=== PATIENT | male | born 2000 | race African-American/Black ===

== ENCOUNTER 2022-12-01 13:36 | Emergency (ER) | payer SELFPAY ==
[~2022-12-01] VITALS: Ht 193 cm; Wt 150.0 kg
[2022-12-01 13:46] VITALS: BP 149/55
[2022-12-01 15:57] LABS: BASOPHILS % 0.4 % (0.0-2.0); EOSINOPHILS % 1.3 % (0.0-5.0); HEMATOCRIT. 45.1 % (42.0-52.0); HEMOGLOBIN. 15.2 g/dL (14.0-18.0); LYMPHOCYTES % 29.1 % (20.0-50.0); MEAN CORPUSCULAR VOLUME 83.3 fL (80.0-94.0); MEAN PLATELET VOLUME 6.7 fl (7.4-10.4); MONOCYTES % 6.8 % (2.0-8.0); NEUTROPHILS % 62.4 % (40.0-76.0); PLATELET 342 x1000/uL (130-400); RED BLOOD CELL COUNT 5.41 mill/uL (4.7-6.1); RED CELL DISTRIBUTION WIDTH 13.8 % (11.6-14.6)
[2022-12-01 16:02] LABS: CHLORIDE 109 mEq/L (98-107)
[2022-12-01 16:15] LABS: CLARITY URINE CLEAR (CLEAR); COLOR URINE YELLOW (YELLOW); KETONES URINE TRACE (NEGATIVE); LEUKOCYTE ESTERASE URINE TRACE (NEGATIVE); NITRITE URINE NEGATIVE (NEGATIVE); OCCULT BLOOD URINE 1+ (NEGATIVE); PH URINE 5.5 (4.5-8.0); PROTEIN URINE NEGATIVE (NEGATIVE); SPECIFIC GRAVITY URINE 1.028 (1.005-1.030)
== END 2022-12-01 22:00 | disposition home or self-care (01) ==
LOC: ER 13:36
DX: R10.13 Epigastric pain (principal); R07.89 Other chest pain; R55 Syncope and collapse; R11.0 Nausea; R19.7 Diarrhea, unspecified
CPT/HCPCS: 36415; 71045; 80053; 81003; 83880; 84484; 85025; 93005; 99284